=== PATIENT | female | born 1955 | race Caucasian/White ===

== ENCOUNTER → 2016-10-02 | Outpatient (REF) | payer BC ==
[~2016-10-02] MED LIST: BUPR150T6 PO; CPR500T PO; FLUC100T6 PO; MESA500C PO; NF-TORA10 PO; OMEP20TA PO; THYR120T2 PO
[2016-10-02 15:48] LABS: BASOPHILS % (AUTO) 1 % (0-2); EOSINOPHILS # (AUTO) 0.2 10^3uL; EOSINOPHILS % (AUTO) 3 % (0-4); LYMPHOCYTES # (AUTO) 0.6 X10^3; MEAN CORPUSCULAR HEMOGLOBIN 27.7 PG (26.0-34.0); MEAN CORPUSCULAR HGB CONC 32.7 g/dL (31.0-37.0); MEAN CORPUSCULAR VOLUME 85 FL (80-100); MEAN PLATELET VOLUME 10.8 FL (6.0-9.5); MONOCYTES # (AUTO) 0.6 X10^3; MONOCYTES % (AUTO) 11 % (3-11); NEUTROPHILS # (AUTO) 3.6 X10^3; NEUTROPHILS % (AUTO) 72 % (51-67); PLATELET COUNT 211 10^3uL (150-450); WHITE BLOOD COUNT 4.93 10^3uL (4.0-11.0)
[2016-10-02 16:26] LABS: ALBUMIN 3.7 g/dL (3.4-5.0); ANION GAP 12.8 MEQ/L (3-15); CALCULATED IONIZED CALCIUM 4.5 mg/dL (3.8-4.6); TOTAL PROTEIN 5.9 g/dL (6.4-8.5)
[2016-10-04 13:48] LABS: ALDOLASE 8.3 U/L (<7.7)
== END ==
LOC: LAB 15:15
PROVIDERS: ATTEND Family Medicine
DX: E03.8 Other specified hypothyroidism (principal); R60.1 Generalized edema; G25.81 Restless legs syndrome
CPT/HCPCS: 80053; 82085; 82550; 82728; 83540; 83550; 83880; 84443; 85025

== ENCOUNTER → 2016-10-07 | Outpatient (CLI) | payer BC ==
[2016-10-07 13:13] LABS: BILIRUBIN,URINE Negative (Negative); CLARITY,URINE Clear; COLOR,URINE Yellow; GLUCOSE, URINE (UA) Negative (Negative); LEUKOCYTE ESTERASE ,URINE Negative (Negative); PH,URINE 5.5 (5.0 - 8.0); UROBILINOGEN,URINE 0.2 mg/dL (0.2-1.0)
== END ==
LOC: LAB 12:18
PROVIDERS: ATTEND Family Medicine
DX: E03.8 Other specified hypothyroidism (principal); R60.1 Generalized edema; G25.81 Restless legs syndrome
CPT/HCPCS: 81003

== ENCOUNTER → 2016-10-09 | Outpatient (CLI) | payer BC | LOC: RAD 13:05 | PROVIDERS: ATTEND Family Medicine | DX: R06.02 Shortness of breath (principal) | CPT/HCPCS: 93306 ==